=== PATIENT | female | born 1955 | race African-American/Black ===

== ENCOUNTER 2021-05-31 18:04 | Emergency (ER) | payer MEDICARE | END 2021-05-31 18:29 | disposition home or self-care (01) | LOC: CSHERS 18:04 | DX: L25.9 Unspecified contact dermatitis, unspecified cause (principal); I11.0 Hypertensive heart disease with heart failure; I50.9 Heart failure, unspecified; E78.00 Pure hypercholesterolemia, unspecified; K21.9 Gastro-esophageal reflux disease without esophagitis; E78.5 Hyperlipidemia, unspecified; Z79.899 Other long term (current) drug therapy | CPT/HCPCS: 99283 ==